=== PATIENT | female | born 1980 | race Asian ===

== ENCOUNTER 2020-03-17 16:07 | Inpatient (IN) | payer BC, OTHER ==
[~2020-03-17 16:07] MED LIST: Betamet Acet/Betamet Na Ph 30 MG/5 ML VIAL IM SCH; Bupivacaine HCl 0.5%/Epinephrine 1:200,000/PF 30 ml Vial ONE; EPHEDRINE 25 MG/5 ML SYRINGE ONE
[2020-03-17] MEDS ORDERED: Betamet Acet/Betamet Na Ph 30 MG/5 ML VIAL ONE (16:39)
[2020-03-17 17:01] VITALS: BMI 32.4
[2020-03-17] MEDS ORDERED: Methylergonovine 0.2 MG/ML VIAL IM PRN (18:33)
[2020-03-17] MEDS ORDERED: Misoprostol 200 MCG TAB PR PRN (18:33)
[2020-03-17] MEDS ORDERED: Diphenoxylate HCl/Atropine Tablet PO PRN ×2 (18:33)
[2020-03-17] MEDS ORDERED: hydrALAZINE 20 MG/ML VIAL SLOW IVP PRN (18:33)
[2020-03-17] MEDS ORDERED: Acetaminophen 500 MG TAB PO PRN (18:33)
[2020-03-17] MEDS ORDERED: Lidocaine 1% (PF) 30 ML VIAL SC PRN (18:33)
[2020-03-17] MEDS ORDERED: Carboprost 250 MCG/ML AMP IM PRN (18:33)
[2020-03-17] MEDS ORDERED: Zolpidem Tartrate 5 MG TAB PO PRN (18:33)
[2020-03-17] MEDS ORDERED: Butorphanol Tartrate 1 MG/ML VIAL SLOW IVP PRN (18:33)
[2020-03-17] MEDS ORDERED: Ibuprofen 800 MG TAB PO PRN (18:33)
[2020-03-17] MEDS ORDERED: Promethazine HCl 25 MG/ML VIAL IM PRN (18:33)
[2020-03-17] MEDS ORDERED: Penicillin G Potassium 5 MILL.UNITS in Sodium Chloride 0.9% 100 ML IVPB SCH (18:45)
[2020-03-17 18:50] LABS: Hemoglobin 11.9 g/dL (12.0-16.0); Mean Corpuscular HGB CONC 33.8 g/dL (32.0-36.0); Mean Corpuscular Hemoglobin 31.9 pg (27.0-31.0); Mean Corpuscular Volume 94.6 fL (78.0-98.0); Mean Platelet Volume 10.5 fL (7.4-10.4); Platelet Count 158 thou/uL (130-400); RBC Distribution Width 12.8 % (11.5-14.5); Red Blood Cell (RBC) Count 3.71 mill/uL (4.20-5.40); White Blood Cell (WBC) Count 9.5 thou/uL (4.8-10.8)
--- NOTE | 2020-03-17 18:57 | PDOC.LDHP ---
Labor and Delivery H&P HPI: 39 y/o at 34 and 0/7 weeks, presents from clinic after being noted to be dilated: 4cm/90/-1. Patient presents to start BMZ steroid course for lung maturity, and for in-house observation for advancing pre-term labor. Patient was noted to be double vertex today, with adequate amniotic fluid. Baby A is on maternal right, B is on maternal left. Patient has had extensive counseling regarding the risks, benefits, and alternatives to trial of labor and vaginal delivery of twins. She remains committed to having a vaginal delivery, and would like to avoid a if safe to do so. I explained ideal vaginal delivery for twins would likely take place in the Operating room. Current gestational age (weeks): 34 Grav: 3 Para: 2 Current complications: gestational diabetes, mono/di twins Current medications: pre- vitamins, other (Natural Progesterone po daily.) Previous surgical history: none Allergies/Adverse Reactions: Allergies Allergy/AdvReac Type Severity Reaction Status Date / Time morphine Allergy Anaphylaxis Verified 03/17/20 17:01 Social history: none - Physical Exam Vital signs reviewed and normal: yes General: NAD, resting Heart: RRR Lungs: CTAB Abdomen: gravid Extremeties: no edema FHT: category 1 - Vaginal Exam cm dilated: 4 Effacement: 90% Station: -1 - Assessment L&D Assessment: labor - Plan Plan: admit to L&D, observation in L&D
[2020-03-17 19:28] LABS: HBSAg Index 0.25 S/CO (0-0.99); Hep B Surf Ag Non-Reactive S/CO (NonReactive); Syphilis Antibody Nonreactive (Nonreactive); Syphilis Antibody Index 0.03 S/CO (<1.00 Non-Reactive)
[2020-03-17] MEDS: Penicillin G 2.5 MILL.units 2.5 MILL.UNITS in Premix Bag 1 BAG IVPB SCH (23:01)
[2020-03-18] MEDS: Penicillin G 2.5 MILL.units 2.5 MILL.UNITS in Premix Bag 1 BAG IVPB SCH ×2 (03:04→07:06)
[2020-03-18] MEDS ORDERED: Fentanyl 4 mcg/Bup 0.1% Cadd 100 ML ONE (04:04)
[2020-03-18] MEDS: Ondansetron PF 4 MG/2 ML Vial IVP PRN ×2 (04:59→07:36)
[2020-03-18 05:02] LABS: SARS-CoV-2 NAA Rapid Test Not Detected (NotDetected)
[2020-03-18] MEDS ORDERED: Lactated Ringer's 500 ML IV PRN (05:21)
[2020-03-18] MEDS ORDERED: Ondansetron PF 4 MG/2 ML Vial IVP PRN ×2 (05:21→11:30)
[2020-03-18] MEDS ORDERED: Promethazine HCl 25 MG/ML VIAL IM PRN ×2 (05:21→11:30)
[2020-03-18] MEDS ORDERED: Acetaminophen 325 MG TAB PO PRN (05:21)
[2020-03-18] MEDS ORDERED: Naloxone HCl 0.4 mg/ml Vial IVP PRN ×2 (05:21)
[2020-03-18] MEDS ORDERED: EPHEDRINE 25 MG/5 ML SYRINGE SLOW IVP PRN (05:21)
[2020-03-18] MEDS ORDERED: diphenhydrAMINE 50 MG/ML VIAL IVP PRN (05:21)
[2020-03-18] MEDS ORDERED: Communication Order-Pharmacy FS SCH (05:30)
[2020-03-18] MEDS ORDERED: Fentanyl 4 mcg/Bupivacaine 0.1% Cassette 100 ML EPIDURAL SCH (05:30)
[2020-03-18] MEDS ORDERED: Midazolam HCl 2 mg/2 ml Vial ONE ×2 (05:55→07:53)
[2020-03-18] MEDS ORDERED: PROPOFOL 0 ML ONE (07:49)
[2020-03-18] MEDS ORDERED: Succinylcholine Chloride 20 MG/ML 10 ml SYRINGE FS ONE (07:49)
[2020-03-18] MEDS: NS / Oxytocin 40 units/1000ml 1,000 ML IV PRN ×2 (09:00→11:17)
[2020-03-18] MEDS ORDERED: Misoprostol 200 MCG TAB ONE (11:17)
[2020-03-18] MEDS ORDERED: Misoprostol 200 MCG TAB VAG PRN (11:30)
[2020-03-18] MEDS ORDERED: Milk Of Magnesia 30 ML UDCUP PO PRN (11:30)
[2020-03-18] MEDS ORDERED: traMADol HCl 50 MG TAB PO PRN ×2 (11:30)
[2020-03-18] MEDS ORDERED: NS / Oxytocin 40 units/1000ml 1,000 ML IV SCH (11:30)
[2020-03-18] MEDS ORDERED: Methylergonovine 0.2 MG/ML VIAL IM PRN (11:30)
[2020-03-18] MEDS ORDERED: Preparation H Ointment 28 GM TUBE PR PRN (11:30)
[2020-03-18] MEDS ORDERED: Bisacodyl 10 MG SUPP PR PRN (11:30)
[2020-03-18] MEDS ORDERED: hydrALAZINE 20 MG/ML VIAL SLOW IVP PRN (11:30)
[2020-03-18] MEDS ORDERED: Benzocaine-Menthol 82.5 ML CAN TOP PRN (11:30)
[2020-03-18] MEDS ORDERED: diphenhydrAMINE 25 MG CAP PO PRN (11:30)
[2020-03-18] MEDS ORDERED: Lanolin Ointment 7 GM TUBE TOP PRN (11:30)
[2020-03-18] MEDS ORDERED: Zolpidem Tartrate 5 MG TAB PO PRN (11:30)
[2020-03-18] MEDS ORDERED: Ibuprofen 800 MG TAB PO SCH (14:00)
[2020-03-18 16:29] VITALS: BP 103/59; TEMP 99
[2020-03-18] MEDS ORDERED: Ferrous Sulfate 325 MG TAB PO SCH (17:00)
[2020-03-18] MEDS ORDERED: Docusate Calcium (SURFAK) 240 MG CAP PO SCH (21:00)
[2020-03-19] MEDS ORDERED: Measles/Mumps/Rubella 10 MCG/0.5 ML VIAL SC ONE (09:00)
[2020-03-19] MEDS ORDERED: Prenatal Vitamin 1 TAB PO SCH (09:00)
[2020-03-19] MEDS ORDERED: Adacel (T-DAP) 0.5 ML SYRINGE IM ONE (09:00)
[2020-03-19] MEDS ORDERED: Varicella virus, LIVE 0.5 ML VIAL SC ONE (09:00)
== END 2020-03-18 17:50 | disposition home or self-care (01) | DRG 807 ==
LOC: L&D/OP 16:07 → L&D 18:33 → 3SW 03-18 12:31
PROVIDERS: ADMIT Obstetrics & Gynecology; ATTEND Obstetrics & Gynecology
PROC: 10E0XZZ Delivery of Products of Conception, External Approach (ICD-10-PCS; principal; 2020-03-18)
DX: O60.14X0 Preterm labor third trimester with preterm delivery third trimester, not applicable or unspecified (principal); Z37.2 Twins, both liveborn; O42.013 Preterm premature rupture of membranes, onset of labor within 24 hours of rupture, third trimester; O30.033 Twin pregnancy, monochorionic/diamniotic, third trimester; Z3A.34 34 weeks gestation of pregnancy
CPT/HCPCS: 36415; 51702; 85027; 86780; 86850; 86900; 86901; 87340; 87635; J0670; J0690; J0702; J2250; J2405; J2540; J2550; J2704; J3490; U0002; U0003